=== PATIENT | female | born 1975 | race Caucasian/White ===

== ENCOUNTER 2016-06-17 21:57 | Emergency (ER) | payer MEDICAID ==
[~2016-06-17] VITALS: Ht 162.6 cm; Wt 100.9 kg
[~2016-06-17 21:57] MED LIST: LORA-392 PO
[2016-06-17 22:08] VITALS: BP 180/118; PULSE 85; RESP 18; TEMP 98.4; O2SAT 97
[2016-06-17 22:23] VITALS: BP 163/106; PULSE 86; RESP 18; O2SAT 100
[2016-06-17] MEDS ORDERED: PROPARACAINE HCL 0.5% OPHT SOLN 15 ML BTL EACH EYE ONE (22:45)
[2016-06-17] MEDS ORDERED: IBUPROFEN 600 MG TAB PO ONE (23:15)
[2016-06-17] MEDS ORDERED: BLOOD PRESSURE MED (23:17)
--- NOTE | 2016-06-17 23:18 | PD ---
HPI Chief Complaint: Eye Problems/Injury Time Seen by Provider: 22:32 Travel History International Travel<30 days: No Contact w/Intl Traveler<30days: No Traveled to known affect area: No History of Present Illness HPI Is 41-year-old female is complaining of pain around the right eye. He says the eyeball itself seems to ache at times. She has not been any change in her vision and no double vision. This been going on throughout the day. There is been tearing but there is been no purulent drainage from the eye. There is been no fever or chills. PFSH Past Medical History Anxiety: Yes Cardiovascular Problems: Yes (HTN) Diminished Hearing: No Hypertension: Yes Reproductive: Yes (ABLASION-UTERINE) Immunizations Current: No ?: Not : 3 Para: 3 Tubal Ligation: Yes Social History Alcohol Use: Yes (occas) Tobacco Use: Yes (1PPD) Substance Use: No Allergies-Medications (Allergen,Severity, Reaction): Coded Allergies: Demerol (Verified Allergy, Severe, SOB, 02/21/16) Stadol (Verified Allergy, Severe, SOB, 02/21/16) Reported Meds & Prescriptions Reported Meds & Active Scripts Active Ativan (Lorazepam) 0.5 Mg Tab 0.5 Mg PO DAILY PRN Review of Systems General / Constitutional: No: Fever, Chills Eyes: Positive: Pain, No: Diploplia, Blurred Vision HENT: Positive: Headaches, No: Rhinitis Cardiovascular: No: Chest Pain or Discomfort, Palpitations Respiratory: No: Cough, Shortness of Breath Gastrointestinal: No: Nausea, Vomiting Genitourinary: No: Frequency Skin: No Rash, No Itching Hematologic/Lymphatic: No: Easy Bruising Physical Exam Narrative GENERAL: A little female SKIN: Focused skin assessment warm/dry. HEAD: Atraumatic. Normocephalic. EYES: Pupils equal and round. No scleral icterus. No injection or drainage. Anterior chambers are clear. Intraocular pressure was measured bilaterally and is 18. Fluorescein stain is negative with the right eye. There is no purulent drainage. There is a small area of erythema on the lateral sclera of the right eye radha conjunctivitis ENT: No nasal bleeding or discharge. Mucous membranes pink and moist. NECK: Trachea midline. No JVD. CARDIOVASCULAR: Regular rate and rhythm. No murmur appreciated. RESPIRATORY: No accessory muscle use. Clear to auscultation. Breath sounds equal bilaterally. GASTROINTESTINAL: Abdomen soft, non-tender, nondistended. Hepatic and splenic margins not palpable. MUSCULOSKELETAL: No obvious deformities. No clubbing. No cyanosis. No edema. NEUROLOGICAL: Awake and alert. No obvious cranial nerve deficits. Motor grossly within normal limits. Normal speech. PSYCHIATRIC: Appropriate mood and affect; insight and judgment normal. Data Data Last Documented VS Vital Signs Date Time Temp Pulse Resp B/P Pulse Ox O2 Delivery O2 Flow Rate FiO2 06/17/16 22:23 86 18 163/106 100 06/17/16 22:08 98.4 Orders Proparacaine 0.5% Opth Soln (Alcaine 0.5 (06/17/16 22:45) Ibuprofen (Motrin) (06/17/16 23:15) MDM Medical Decision Making Medical Screen Exam Complete: Yes Emergency Medical Condition: Yes Medical Record Reviewed: Yes Differential Diagnosis Differential includes glaucoma, headache, eye pain Narrative Course Mention of the eye is unremarkable and there are no visual changes. Suspect headache. Patient will be treated symptomatically with recommendation that she see an eye doctor tomorrow if the symptoms persist Diagnosis Primary Impression: Headache Additional Instructions: Follow up with eye doctor tomorrow if symptoms persist Disposition: 01 DISCHARGE HOME Condition: Stable Guevara Zamora MD Jun 17, 2016 23:18
[2016-06-17 23:40] VITALS: BP 158/96
== END 2016-06-17 23:42 | disposition home or self-care (01) ==
LOC: PHED 21:57
DX: R51 Headache (principal); I10 Essential (primary) hypertension; F17.210 Nicotine dependence, cigarettes, uncomplicated
CPT/HCPCS: 99283